=== PATIENT | female | born 1985 | race American Indian/Alaskan Native ===

== ENCOUNTER 2017-01-23 11:06 | Emergency (ER) | payer SELFPAY ==
[2017-01-23 11:58] VITALS: BP 119/73
[2017-01-23 12:30] LABS: Basophils % (Auto) 0.5 % (0.0-1.8); Eosinophils % (Auto) 0.7 % (0.0-4.3); Hematocrit 36.2 % (30.3-42.9); Hemoglobin 11.8 gm/dl (10.1-14.3); Mean Corpuscular HGB Conc 33 % (30-34); Mean Corpuscular Volume 76 fl (79-97); Platelet Count 218 K/mm3 (140-440); Red Blood Count 4.79 M/mm3 (3.65-5.03); Red Cell Distribution Width 17.4 % (13.2-15.2); White Blood Count 14.1 K/mm3 (4.5-11.0)
[2017-01-23 12:40] LABS: Bacteria,Urine 1+ /HPF (Negative); Bilirubin,Urine NEG (Negative); Blood,Urine NEG (Negative); Ketones,Urine TR mg/dL (Negative); Leukocyte Esterase,Urine MOD (Negative); Mucus,Urine FEW /HPF; Nitrite,Urine NEG (Negative); Protein,Urine <15 mg/dL mg/dL (Negative)
[2017-01-23 12:46] LABS: Mean Corpuscular Hemoglobin 25 pg (28-32)
[2017-01-23 12:54] LABS: Alanine Aminotransferase 16 units/L (7-56); Albumin 4.5 g/dL (3.9-5); Albumin/Globulin Ratio 1.4 %; Alkaline Phosphatase 83 units/L (35-129); Anion Gap 18 mmol/L; Blood Urea Nitrogen 10 mg/dL (7-17); Calcium 8.9 mg/dL (8.4-10.2); Carbon Dioxide 25 mmol/L (22-30); Chloride 102.7 mmol/L (98-107); Glucose 88 mg/dL (65-100); Lipase 13 units/L (13-60); Potassium 4.5 mmol/L (3.6-5.0); Sodium 141 mmol/L (137-145); Total Protein 7.8 g/dL (6.3-8.2)
== END 2017-01-23 14:11 | disposition left against medical advice (07) ==
LOC: ED 11:06
DX: R10.9 Unspecified abdominal pain (principal); Z53.21 Procedure and treatment not carried out due to patient leaving prior to being seen by health care provider
CPT/HCPCS: 36415; 80053; 81001; 83690; 84703; 85025

== ENCOUNTER 2018-12-08 19:36 | Emergency (ER) | payer BC ==
--- NOTE | 2018-12-08 21:06 | Event Note ---
ED Screening Note Date of service: 12/08/18 Time: 21:02 ED Screening Note: This is a 33 y.o. F. that presents with back pain and vaginal discharge x 3-4 days. Patient states she took macrobid for 3 days with no improvement of symptoms. LMP 11/19/2018. This initial assessment/diagnostic orders/clinical plan/treatment(s) is/are subject to change based on patients health status, clinical progression and re- assessment by fellow clinical providers in the ED. Further treatment and workup at subsequent clinical providers discretion. Patient/guardian urged not to elope from the ED as their condition may be serious if not clinically assessed and managed. Initial orders include: Labs
[2018-12-08 21:48] LABS: HCG Qualitative,Urine Negative (Negative)
[2018-12-08 21:57] LABS: Bilirubin,Urine NEG (Negative); Blood,Urine NEG (Negative); Color,Urine Yellow (Yellow); Protein,Urine <15 mg/dL mg/dL (Negative); Urobilinogen,Urine < 2.0 mg/dL (<2.0); WBC,Urine < 1.0 /HPF (0.0-6.0)
--- NOTE | 2018-12-09 01:24 | Emergency Department Report ---
HPI - General Chief Complaint: Headache Time Seen by Provider: 12/08/18 21:00 - HPI HPI: This is a 32-year-old female here reports that she has had a body ache and painful urination 3 days. She said that she took some antibiotics that she had at home but now she is not having any painful urination but she does not know if the antibiotic work or not. She is also complaining of feeling of bronchitis without any cough or wheezing but reports some congestion. Denies any chest pain .Denies any fever or chills. Nasal congestion started a week ago. Headache on and off with history of headache. Denies any nausea or vomiting. Denies any abdominal pain, body ache is 6 out of 10 and reports pain to head at the front of her had 4/10. Denies any dizziness, neck pain or stiffness. Denies any blurred vision. Review of chart shows patient has a history of sinusitis problem and patient reports that she has allergies. She has been on Zyrtec and prednisone, Claritin in the past. Patient also reported that she is having some upper back pain without any trauma. Patient has a history of asthma and headache. ED Past Medical Hx - Past Medical History Previous Medical History?: Yes Hx Hypertension: No Hx CVA: No Hx Heart Attack/AMI: No Hx Congestive Heart Failure: No Hx Diabetes: No Hx Deep Vein Thrombosis: No Hx Pulmonary Embolism: No Hx GERD: No Hx Liver Disease: No Hx Renal Disease: No Hx Sickle Cell Disease: No Hx Arthritis: No Hx Headaches / Migraines: Yes Hx Seizures: No Hx Kidney Stones: No Hx Psychiatric Treatment: No Hx Asthma: Yes Hx COPD: No Hx Tuberculosis: No Hx Dementia: No Hx HIV: No - Surgical History Past Surgical History?: Yes Hx Coronary Stent: No Hx Open Heart Surgery: No Hx Pacemaker: No Hx Internal Defibrillator: No Hx Cholecystectomy: No Hx Appendectomy: No Hx Breast Surgery: No Additional Surgical History: Left foot surgery, 2 C-sections - Family History Family history: hypertension - Social History Smoking Status: Never Smoker Substance Use Type: None - Medications Home Medications: Home Medications Medication Instructions Recorded Confirmed Last Taken Type Cyclobenzaprine [Flexeril 10 MG 10 mg PO BID PRN #10 tablet 04/13/15 Unknown Rx TAB] metroNIDAZOLE [Flagyl TAB] 500 mg PO Q12HR #14 tab 04/13/15 Unknown Rx Clindamycin [Clindamycin CAP] 300 mg PO Q6H #40 capsule 08/17/15 Unknown Rx Ibuprofen [Motrin 600 MG tab] 600 mg PO Q8H PRN #40 tablet 08/17/15 Unknown Rx Loratadine [Claritin] 10 mg PO DAILY #30 tablet 08/17/15 Unknown Rx Prednisone [predniSONE 10 mg 10 mg PO .TAPER #1 tab.ds.pk 08/17/15 Unknown Rx (6-Day Pack, 21 Tabs)] Promethazine /Codeine 5 ml PO Q6H PRN #150 ml 08/17/15 Unknown Rx [Phenergan/Codeine 6.25-10 mg/5 ml] Acetaminophen with Codeine 1 tab PO Q6HR PRN #15 tab 09/05/15 Unknown Rx [Acetaminophen-Codeine #4 TAB] Indomethacin 50 mg PO Q8H #30 capsule 09/05/15 Unknown Rx predniSONE [Deltasone] 40 mg PO DAILY #10 tablet 09/05/15 Unknown Rx Cetirizine HCl [ZyrTEC] 10 mg PO DAILY #30 tab.chew 02/24/16 Unknown Rx Ibuprofen [Motrin 800 MG tab] 800 mg PO Q8HR PRN #30 tablet 02/24/16 Unknown Rx predniSONE [Deltasone] 20 mg PO QDAY #5 tab 02/24/16 Unknown Rx Azithromycin [Zithromax Z-YESSICA] 250 mg PO DAILY 5 Days #1 pkg 12/09/18 Unknown Rx Cetirizine HCl [ZyrTEC] 10 mg PO QAM 14 Days #14 capsule 12/09/18 Unknown Rx Fluticasone [Flonase] 1 spray NS QDAY 14 Days #1 bottle 12/09/18 Unknown Rx Ibuprofen [Motrin] 600 mg PO Q8H PRN #12 tablet 12/09/18 Unknown Rx methylPREDNISolone [Medrol 4MG 4 mg PO QAM 6 Days #1 tab.ds.pk 12/09/18 Unknown Rx DOSEPAK (21 tabs)] ED Review of Systems ROS: Stated complaint: HEADACHE/PAINFUL URINATION Other details as noted in HPI Constitutional: denies: chills, fever Eyes: denies: eye pain, eye discharge, vision change ENT: congestion (reported some congestion). denies: ear pain (congestion), throat pain, epistaxis Respiratory: denies: cough, orthopnea, shortness of breath, SOB with exertion, SOB at rest, stridor, wheezing Cardiovascular: denies: chest pain, palpitations, dyspnea on exertion, edema, syncope Gastrointestinal: denies: abdominal pain, nausea, vomiting, diarrhea, constipation, hematemesis, melena, hematochezia Genitourinary: dysuria. denies: urgency, frequency, hematuria, discharge, abnormal menses, dyspareunia Skin: denies: rash Neurological: headache. denies: weakness, numbness, paresthesias, confusion, abnormal gait, vertigo Physical Exam - Physical Exam Vital Signs: Vital Signs 12/08/18 21:06 Temperature 98.4 F Pulse Rate 86 Respiratory 18 Rate Blood Pressure 139/56 O2 Sat by Pulse 96 Oximetry General: This is a 33-year-old female well-nourished well-developed in no acute distress. Physical Exam: Head: Normocephalic atraumatic. Scalp examination and normal. Nontender to palpate. No abrasion, contusion or hematoma noted. Mouth: Oral mucosa moist, tongue is normal, uvula is midline, no EDUCATION PROGRAM COORDINATOR or drooling, oral airways patent and uvula is Lungs: Clear to auscultated bilaterally, no rhonchi wheezes or rales. No use of accessory muscles. No chest wall tenderness CV: S1, S2. Regular rate rhythm negative murmur. Eyes: Bilateral pupils equal and reactive to light, conjunctival injection or icterus. Bilateral EOM intact and normal accommodation. No nystagmus. Nose: Mild nasal congestion, bilateral frontal and mesentery sinus nontender to palpate. Clear nasal drainage. EARS: Bilateral TM congested without erythema. Bilateral EAC normal exam Skin: Clean dry and intact, no rash or lesions. Extremity: No cce. + 2 pulses in all extremities, no neurovascular compromise.No laceration, bruises then or contusion noted to extremities. Negative Homans signs bilaterally. No palpable cord bilateral lower extremity. Musculoskeletal: Normal Range of motion in all extremities, no joint crepitus, erythema or effusion. Back: No paraspinal or vertebral tenderness. No CVA tenderness. Ambulates without any difficulties. Neurological: GCS is 15, alert and oriented 3, normal gait, negative Romberg or pronator drift. No motor or sensory deficit. Skin: Clean dry and intact, no rashes no lesions Mood: Normal mood and behavior ED Course Vital Signs 12/08/18 21:06 Temperature 98.4 F Pulse Rate 86 Respiratory 18 Rate Blood Pressure 139/56 O2 Sat by Pulse 96 Oximetry - Reevaluation(s) Reevaluation #1: 12/09/18 01:37 Patient remained stable throughout ED course. She is in no acute distress. Urinalysis without any infection and negative . ED Medical Decision Making - Lab Data Lab Results 12/08/18 Range/Units 21:00 Urine Color Yellow (Yellow) Urine Turbidity Clear (Clear) Urine pH 7.0 (5.0-7.0) Ur Specific Hope 1.014 (1.003-1.030) Urine Protein <15 mg/dl (Negative) mg/dL Urine Glucose (UA) Neg (Negative) mg/dL Urine Ketones Neg (Negative) mg/dL Urine Blood Neg (Negative) Urine Nitrite Neg (Negative) Ur Reducing Substances Not Reportable Urine Bilirubin Neg (Negative) Urine Ictotest Not Reportable Urine Urobilinogen < 2.0 (<2.0) mg/dL Ur Leukocyte Esterase Neg (Negative) Urine WBC (Auto) < 1.0 (0.0-6.0) /HPF Urine RBC (Auto) 1.0 (0.0-6.0) /HPF U Epithel Cells (Auto) 1.0 (0-13.0) /HPF Urine HCG, Qual Negative (Negative) - Radiology Data Radiology results: report reviewed - Medical Decision Making 33-year-old female here with generalized complain and found to have nasal congestion with, mild hypertrophy of nasal turbinates , urinalysis stable. This is negative. She is neurologically intact. Patient with sinusitis, mild and mild headache. I discussed the patient diagnosis and urinalysis findings and she is to follow-up with her primary care physician and 2-3 days. She was under standing. Patient discharged home in stable condition with prescription for Z- Yessica, Flonase, Zyrtec and Medrol Dosepak. No headache currently. Critical care attestation.: If time is entered above; I have spent that time in minutes in the direct care of this critically ill patient, excluding procedure time. ED Disposition Clinical Impression: Headache Qualifiers: Headache type: unspecified Headache chronicity pattern: episodic headache Intractability: not intractable Qualified Code(s): R51 - Headache Sinusitis Qualifiers: Sinusitis location: unspecified location Chronicity: unspecified Qualified Code(s): J32.9 - Chronic sinusitis, unspecified Disposition: DC-01 TO HOME OR SELFCARE Is pt being admited?: No Does the pt Need Aspirin: No Condition: Stable Instructions: Sinusitis (ED) Additional Instructions: Physical Your primary care physician in 2-3 days and if he do not have a primary care physician follow-up at [facility] Take medication as prescribed and if his symptoms worsens or does not get better he can return to emergency room. Referrals: TOSHIA MARRMONTEREY MD DOROTEO [Primary Care Provider] - 12/11/18 Forms: Work/School Release Form(ED)
[2018-12-09 02:26] VITALS: BP 116/75
== END 2018-12-09 02:26 | disposition home or self-care (01) ==
LOC: ED 19:36
DX: J32.9 Chronic sinusitis, unspecified (principal); G43.909 Migraine, unspecified, not intractable, without status migrainosus; J45.909 Unspecified asthma, uncomplicated; Z98.890 Other specified postprocedural states; Z79.899 Other long term (current) drug therapy; Z88.0 Allergy status to penicillin; Z88.1 Allergy status to other antibiotic agents; Z91.040 Latex allergy status
CPT/HCPCS: 81001; 81025; 99283